=== PATIENT | female | born 1960 | race Caucasian/White ===

== ENCOUNTER 2018-05-03 18:18 | Emergency (ER) | payer OTHER ==
[~2018-05-03] VITALS: Ht 160 cm; Wt 70.3 kg
[~2018-05-03 18:18] MED LIST: CELEXA 20 MG TA20 MG PO; NAPROSYN500 MG PO; NOHOMEMEDICATIONS; UNICOMPLEX M TA1 TA1 PO
[2018-05-03 19:07] LABS: HEMATOCRIT 44.7 % (37.0-47.0); HEMOGLOBIN 15.5 gm/dL (12.0-15.0); MCH 30.5 pg (26.0-34.0); MCHC 34.7 g/dL (28.0-37.0); MCV 87.8 fL (80.0-100.0); MPV 9.5 fl. (7.2-11.1); NUCLEATED RBCS 0 /100WBC; PLATELET COUNT* 188 thou/uL (150-400); RDW-CV 13.1 % (10.5-14.5); WBC 13.8 thou/uL (4.0-11.0)
[2018-05-03 19:19] LABS: ANION GAP 10 mmol/L (7-16); BUN 13 mg/dL (7-18); CALCIUM 9.2 mg/dL (8.5-10.1); CHLORIDE 101 mmol/L (98-107); CO2 28 mmol/L (21-32); CREATININE 0.8 mg/dL (0.6-1.3); GLUCOSE 94 mg/dL (70-99); POTASSIUM 3.3 mmol/L (3.5-5.1); SODIUM 139 mmol/L (136-145)
[2018-05-03 19:20] LABS: URINE BLOOD 2+ (Negative); URINE CLARITY CLEAR; URINE COLOR YELLOW; URINE GLUCOSE-RANDOM NEGATIVE (Negative); URINE LEUKOCYTES-REFLEX TRACE (Negative); URINE NITRITE-REFLEX NEGATIVE (Negative); URINE PROTEIN TRACE (Negative); URINE SPECIFIC GRAVITY >= 1.030 (1.005-1.030); URINE UROBILINOGEN 0.2 E.U./dl (0.2-1.0)
[2018-05-03 19:29] LABS: ALBUMIN 3.8 g/dL (3.4-5.0); ALKALINE PHOSPHATASE 126 U/L (46-116); LIPASE 77 U/L (73-393); SGOT 15 U/L (15-37); SGPT 24 U/L (30-65); TOTAL BILIRUBIN 0.9 mg/dL (<0.1-1.0); TOTAL PROTEIN 7.9 g/dL (6.4-8.2); TROPONIN-I LEVEL <0.06 ng/mL (<0.06)
[2018-05-03 19:31] LABS: URINE KETONES 3+ (Negative)
[2018-05-03 19:32] LABS: URINE BILIRUBIN 2+ (Negative)
[2018-05-03 19:39] LABS: ACETEST (KETONE CONFIRMATORY) Moderate (Negative); ICTOTEST (BILI CONFIRMATORY) Negative (Negative)
[2018-05-03 19:41] LABS: BACTERIA-REFLEX 1-9 Few /HPF (None Seen); CASTS None Seen /LPF (None Seen); CRYSTALS None Seen /LPF (None Seen); SQUAMOUS >10 Many /LPF (0-3); URINE RBC 3-10 Few /HPF (0-2); URINE WBC-REFLEX 6-15 Few /HPF (0-5)
[2018-05-03 20:14] LABS: ABSOLUTE LYMPHOCYTES 0.7 thou/uL (0.8-5.3); ABSOLUTE MONOCYTES 1.2 thou/uL (0.0-1.2); ABSOLUTE NEUTROPHILS 11.9 thou/uL (1.6-8.1); PLATELET ESTIMATE ADEQUATE
[2018-05-03] MEDS ORDERED: MEDROLDOSEPACK PO (20:53)
[2018-05-03] MEDS ORDERED: AUGMENTIN 875-1 EACH PO (20:53)
[2018-05-03 21:08] VITALS: BP 134/75
--- NOTE | 2018-05-04 11:55 | EKG ---
[place] [address] ELECTROCARDIOGRAM REPORT Name: STACYCHANOJONNY Room: [facility]#: [id number] Admission: 05/03/18 Attend Phys: Discharge: 05/03/18 Date of : 62 Report #: [id number] THIS REPORT FOR: //name// [facility] ED Test Date: 2018-05-03 Test Time: 18:44:41 Pat Name: JONNY CAMEJO Department: Room: Gender: F Trade Analyst: Ramandeep EARL : 1960 Requested By: Eneida Dc Order Number: [id number] MD: Patrick Young Measurements Intervals [place] Rate: 81 P: MN: QRS: 7 QRSD: 94 T: 62 QT: 376 QTc: 437 Interpretive Statements Atrial flutter with predominant 4:1 AV block Borderline low voltage, extremity leads Compared to ECG 02/05/2016 20:14:16 AV block, advanced (high-grade) now present Sinus rhythm no longer present Electronically Signed On 05-04-2018 11:55:37 CDT by Patrick Young [email or web address] <ELECTRONICALLY SIGNED> By: Patrick Young MD, FACC 05/04/18 1155 1844 1844 Patrick Young MD, FAC /EPI
== END 2018-05-03 21:10 | disposition home or self-care (01) ==
LOC: M.ERS 18:18
PROVIDERS: Physician Assistant Surgical
DX: J40 Bronchitis, not specified as acute or chronic (principal); T78.49XA Other allergy, initial encounter; F32.9 Major depressive disorder, single episode, unspecified; E66.9 Obesity, unspecified; Z68.27 Body mass index [BMI] 27.0-27.9, adult; X58.XXXA Exposure to other specified factors, initial encounter

== ENCOUNTER → 2019-09-19 | Outpatient (CLI) | payer OTHER ==
[~2019-09-19] MED LIST changes: +AUGMENTIN 875-1 EACH PO; +MEDROLDOSEPACK PO
== END ==
LOC: M.RAD 15:05
DX: Z12.31 Encounter for screening mammogram for malignant neoplasm of breast (principal)

== ENCOUNTER 2020-03-26 17:30 | Emergency (ER) | payer OTHER ==
[~2020-03-26] VITALS: Ht 157.5 cm; Wt 74.8 kg
[2020-03-26] MEDS ORDERED: LIPITOR 20 MG T20 M1 PO (17:36)
[2020-03-26] MEDS ORDERED: LISINOPRIL2.5 MG PO (17:37)
[2020-03-26 18:15] LABS: ABSOLUTE BASOPHILS 0.1 thou/uL (0.0-0.2); ABSOLUTE EOSINOPHILS 0.2 thou/uL (0.0-0.7); ABSOLUTE LYMPHOCYTES 1.9 thou/uL (0.8-5.3); ABSOLUTE MONOCYTES 0.5 thou/uL (0.0-1.2); ABSOLUTE NEUTROPHILS 4.3 thou/uL (1.6-8.1); BASOPHILS 1.2 %; EOSINOPHILS 2.2 %; HEMATOCRIT 39.1 % (37.0-47.0); HEMOGLOBIN 13.7 gm/dL (12.0-15.0); LYMPHOCYTES 27.1 %; MCH 31.2 pg (26.0-34.0); MCHC 34.9 g/dL (28.0-37.0); MCV 89.4 fL (80.0-100.0); MONOCYTES 7.4 %; MPV 9.6 fl. (7.2-11.1); NUCLEATED RBCS 0 /100WBC; PLATELET COUNT* 213 thou/uL (150-400); POLYS 62.1 %; RBC 4.38 mil/uL (4.20-5.00); WBC 6.9 thou/uL (4.0-11.0)
[2020-03-26 18:25] LABS: CALCIUM 8.5 mg/dL (8.5-10.1); CREATININE 0.8 mg/dL (0.6-1.3); POTASSIUM 3.8 mmol/L (3.5-5.1)
[2020-03-26 18:26] LABS: APTT 25.7 Seconds (25.0-31.3)
[2020-03-26 18:29] LABS: ALBUMIN 3.6 g/dL (3.4-5.0); TOTAL BILIRUBIN 0.2 mg/dL (<0.1-1.0); TOTAL PROTEIN 6.9 g/dL (6.4-8.2)
[2020-03-26] MEDS ORDERED: CHILDREN'S ASPI81 M1 PO ×2 (20:38→20:39)
[2020-03-26 20:52] VITALS: BP 142/67
--- NOTE | 2020-03-27 16:24 | EKG ---
[place] [address] ELECTROCARDIOGRAM REPORT Name: NELLJONNY Fatou Room: [facility]#: [id number] Admission: 03/26/20 Attend Phys: Discharge: 03/26/20 Date of : 62 Date of Service: 03/26/20 174 Report #: [id number] THIS REPORT FOR: //name// 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[facility] [employer] : 1960 Requested By: Sandra Acosta Order Number: [id number] MD: Hiren Mcdowell Measurements Intervals [place] Rate: 57 P: 22 ME: 148 QRS: -9 QRSD: 101 T: 72 QT: 441 QTc: 430 Interpretive Statements Sinus rhythm Low voltage, precordial leads Compared to ECG 05/03/2018 18:44:41 Heart rate has decreased Electronically Signed On 03-27-2020 16:24:16 CDT by Hiren Mcdowell [email or web address] <ELECTRONICALLY SIGNED> By: Hiren Mcdowell MD, [facility] 03/27/20 1624 1741 1741 Hiren Mcdowell MD, [facility] /EPI
== END 2020-03-26 20:52 | disposition home or self-care (01) ==
LOC: M.ERS 17:30
PROVIDERS: Physician Assistant
DX: M25.512 Pain in left shoulder (principal); E66.9 Obesity, unspecified; Z68.30 Body mass index [BMI] 30.0-30.9, adult; Z98.51 Tubal ligation status; Z98.890 Other specified postprocedural states; Z79.899 Other long term (current) drug therapy